=== PATIENT | male | born 1980 | race Two or more races ===

== ENCOUNTER 2021-04-22 18:24 | Emergency (ER) | payer SELFPAY ==
[~2021-04-22] VITALS: Ht 170.2 cm; Wt 94.0 kg
[2021-04-22] MEDS ORDERED: ALBUTEROL SULFATE 2.5 MG/3 ML NEBU. NEB ONE (18:30)
[2021-04-22] MEDS ORDERED: FAMOTIDINE 20 MG/2 ML VIAL IVP ONE (18:30)
[2021-04-22] MEDS ORDERED: IV NORMAL SALINE 1000ML BAG 1,000 ML IV ONE (18:30)
[2021-04-22] MEDS ORDERED: methylPREDNISolone SOD SUCC PF 125 MG/2 ML VIAL. IV ONE (18:30)
--- NOTE | 2021-04-22 18:30 | ED.ADGEN ---
General Adult HPI: HPI: Patient is a 40 year old [place]-speaking male coming in for allergic reaction to wasp sting. He was on the side of the road pulled over changing a tire when he was stung. Patient states he has never had this kind of reaction before. States he has no known medication reactions either. Patient states he otherwise has been well. On EMS arrival he was satting 89% on room air but taking short breaths. Patient denies any pain but has a pruritic rash all over his body. Denies any past medical history. He was placed a nasal cannula with improvement to 95%, given 0.5 mcg epinephrine IM, given 50 mg Benadryl IV, and 200 cc LR prior to arrival Review of Systems: Review of Systems: All other systems within normal limits except for as noted in the HPI Current Medications: Current Medications Medications (Trade) Dose Ordered Sig/[place] Start Time Stop Time Status Last Admin Dose Admin Albuterol Sulfate (Ventolin Neb Soln) 2.5 mg 1X ONCE 04/22/21 18:30 04/22/21 18:55 DC 04/22/21 18:30 2.5 MG Famotidine (Pepcid Vial) 20 mg 1X ONCE 04/22/21 18:30 04/22/21 18:55 DC 04/22/21 18:45 20 MG Methylprednisolone Sodium Succinate (SOLU-Medrol 125MG VIAL) 125 mg 1X ONCE 04/22/21 18:30 04/22/21 18:55 DC 04/22/21 18:45 125 MG Sodium Chloride 1,000 ml @ 1,000 mls/hr 1X ONCE 04/22/21 18:30 04/22/21 19:29 DC 04/22/21 18:45 1,000 MLS/HR Allergies: Allergies: Allergies Coded Allergies Type Severity Reaction Last Updated Verified No Known Drug Allergies 04/22/21 No Physical Exam: PE: Constitutional: Well developed, well nourished, no acute distress, non-toxic appearance. [] HENT: Normocephalic, atraumatic, bilateral external ears normal, nose normal. [] Eyes: PERRLA, conjunctiva normal, no discharge. [] Neck: No rigidity, supple, no stridor. [] Cardiovascular: Regular rate and rhythm, brisk cap refill [] Lungs & Thorax: Non labored symmetric respirations, no tachypnea or respiratory distress, lungs clear to auscultation [] Abdomen: Soft, nondistended. Skin: Warm, dry, diffuse maculopapular rash, lesion on right back at site of sting wound, no stinger visible in wound. [] Back: Unremarkable Extremities: No deformities, range of motion grossly intact, no lower extremity edema [] Neurologic: Alert and oriented X 3, no focal deficits noted. [] Psychologic: Affect normal, judgement normal, mood normal. [] Current Patient Data: Vital Signs: Vital Signs Date Time Temp Pulse Resp B/P (MAP) Pulse Ox O2 Delivery O2 Flow Rate FiO2 04/22/21 18:31 93 Room Air 04/22/21 18:30 98.2 86 22 112/68 3.0 98.2 EKG: EKG: [] Heart Score: C/O Chest Pain: No Risk Factors: Risk Factors: DM, Current or recent (<one month) smoker, HTN, HLP, family hi story of CAD, obesity. Risk Scores: Score 0 - 3: 2.5% MACE over next 6 weeks - Discharge Home Score 4 - 6: 20.3% MACE over next 6 weeks - Admit for Clinical Observation Score 7 - 10: 72.7% MACE over next 6 weeks - Early Invasive Strategies Radiology/Procedures: Radiology/Procedures: [] Course & Med Decision Making: Course & Med Decision Making Pertinent Labs and Imaging studies reviewed. (See chart for details) Patient cleared and observed in emergency department for 3 hours after arrival, 3.5 hours after epinephrine without return of symptoms. [] Dragon Disclaimer: Dragon Disclaimer: This electronic medical record was generated, in whole or in part, using a voice recognition dictation system. Departure Departure Impression: Primary Impression: Allergic reaction Disposition: HOME / SELF CARE / HOMELESS Condition: STABLE Patient Instructions: Hives Scripts Epinephrine (EPIPEN 2-ROBERTO) 0.3 Mg/0.3 Ml Auto.injct 1 SYR IM ONCE for allergic reaction for 1 Day, #1 PACKET 0 Refills Prov: BHUPINDER CLINE MD 04/22/21 Diphenhydramine Hcl (DIPHENHYDRAMINE HCL) 25 Mg Tablet 1-2 TAB PO PRN Q6-8HRS PRN for HIVES for 10 Days, #30 TAB 0 Refills Prov: BHUPINDER CLINE MD 04/22/21 Famotidine (FAMOTIDINE) 40 Mg Tablet 40 MG PO DAILY for antacid for 7 Days, #7 TAB Prov: BHUPINDER CLINE MD 04/22/21 Prednisone (PREDNISONE) 50 Mg Tablet 1 TAB PO DAILY for steroid for 5 Days, #5 TAB Prov: BHUPINDER CLINE MD 04/22/21 BHUPINDER CLINE MD Apr 22, 2021 18:30
[2021-04-22] MEDS ORDERED: EPIPEN 2-P0.3 MG/0.3 IM (21:27)
[2021-04-22] MEDS ORDERED: FAMO40TA4 PO (21:27)
[2021-04-22] MEDS ORDERED: PRED50TA PO (21:27)
[2021-04-22] MEDS ORDERED: DIPH25TA24 PO (21:27)
[2021-04-22 21:51] VITALS: BP 103/60
== END 2021-04-22 22:10 | disposition home or self-care (01) ==
LOC: ER 18:24
DX: T63.461A Toxic effect of venom of wasps, accidental (unintentional), initial encounter (principal); Y92.89 Other specified places as the place of occurrence of the external cause
CPT/HCPCS: 94640; 96361; 96374; 96375; 99285; J2930; J3490; J7030; J7613